=== PATIENT | male | born 1970 | race Caucasian/White ===

== ENCOUNTER 2019-10-24 13:17 | Emergency (ER) | payer OTHER ==
[~2019-10-24] VITALS: Ht 175.3 cm; Wt 93.0 kg
[2019-10-24 13:17] VITALS: BP_SYST 165
[2019-10-24 14:17] VITALS: BP_SYST 165
== END 2019-10-24 14:13 | disposition home or self-care (01) ==
LOC: SED 13:17
DX: S49.92XA Unspecified injury of left shoulder and upper arm, initial encounter (principal); X58.XXXA Exposure to other specified factors, initial encounter; Y93.89 Activity, other specified; Y92.89 Other specified places as the place of occurrence of the external cause; Y99.8 Other external cause status
CPT/HCPCS: 73060-TC; 99283